=== PATIENT | male | born 1965 | race Caucasian/White ===

== ENCOUNTER 2016-09-28 06:39 | Emergency (ER) | payer OTHER ==
[~2016-09-28] VITALS: Ht 182.9 cm; Wt 111.1 kg
[~2016-09-28 06:39] MED LIST: AMOXIL500 MG PO; ATORVASTATIN CA10 MG PO; DIVALPROEX SOD500 MG PO; FIORICET 325 MG1 TAB PO; LISINOPRIL20 MG PO; MOTRIN 400MG (400 MG PO; PERCOCET 325 MG1 TA2 PO; PREDNISONE 20MG20 MG PO; RISPERIDONE1 MG PO; TAMSULOSIN HYD0.4 MG PO; TORADOL10 MG PO; ZOFRAN ODT4 MG SL
[2016-09-28 06:56] VITALS: BP 118/76
[2016-09-28] MEDS ORDERED: TRIAMTERENE-HC1 EAC3 PO (07:01)
--- NOTE | 2016-09-28 07:29 | ED GENERAL ADULT ---
History of Present Illness General Chief Complaint: General Adult Stated Complaint: ITCHY HANDS Source: patient Exam Limitations: no limitations Vital Signs & Intake/Output Vital Signs & Intake/Output ED Intake and Output 09/29 0000 09/28 1200 Intake Total Output Total Balance Patient 245 lb Weight Allergies Uncoded Allergies: LATEX POWDER IN GLOVES (Severe, BRIGHT RED SKIN AND HIVES 09/28/16) Reconcile Medications Atorvastatin Calcium (Lipitor) 10 MG TABLET 1 TAB PO DAILY CHOLESTEROL ( Reported) Divalproex Sodium (Divalproex Sodium ER) 500 MG TAB.ER.24H 1 TAB PO TID MOOD STABILIZER (Reported) Hydroxyzine Pamoate (Vistaril) 25 MG CAPSULE 1 CAP PO Q12 PRN ITCHING Prednisone 20 MG TABLET 1 TAB PO DAILY CONTACT DERMATITIS Risperidone 1 MG TABLET 1 TAB PO DAILY HYPERNESS (Reported) TAMSULOSIN HCL (Tamsulosin Hydrochloride) 0.4 MG CAP.ER.24H 1 CAP PO DAILY EXCESSIVE URINATION (Reported) Triamterene/Hydrochlorothiazid (Triamterene-Hctz 37.5-25 MG Cp) 37.5 MG-25 MG CAPSULE 1 CAP PO DAILY HTN (Reported) Triage Note: TRIAGE: PATIENT TO ER FROM HOME REPORTING BILATERAL HAND REDNESS AND ITCHING X 1 MONTH, REPORTS ITCHING CONSTANT THOUGH WORSE TONIGHT. HANDS NOTED W/ REDNESS AND CRACKING. PATIENT REPORTS HX ALLERGY TO LATEX POWDER IN GLOVES, WEARS GLOVES AT WORK THOUGH REPORTS THEY ARE LATEX AND POWDER FREE. Triage Nurses Notes Reviewed? yes Onset: Abrupt Duration: day(s): Timing: recent history HPI: 09/28/16 7:46 AM 51-year-old man presents to the emergency department with a rash to bilateral hands. He says that the powder in the gloves were he works at [employer] irritates his hands. He has a dry cracking rash in between the fingers. The onset of the symptoms was abrupt, the duration has been for several days, the severity is significant as his symptoms required him to come to the emergency department for care. He was told not to use the gross with the powder. Use Aquaphor, short course of prednisone and Atarax as needed for itching. He will follow-up with his doctor next week. Past History Travel History Traveled to [place] past 21 day No Medical History Any Pertinent Medical History? see below for history Neurological: migraine EENT: NONE Cardiovascular: hypertension, hyperlipidemia Respiratory: NONE Gastrointestinal: diverticulitis, GERD Hepatic: NONE Renal: NONE Musculoskeletal: NONE Psychiatric: bipolar disease Endocrine: NONE Blood Disorders: NONE Cancer(s): NONE HEADER BOSS/Reproductive: NONE Surgical History Surgical History: VASECTOMY Psychosocial History Who do you live with Patient/Self Services at Home None What is your primary language Serbian Tobacco Use: Refused to answer Family History Hx Contributory? No Review of Systems Review of Systems Constitutional: Denies: fever. EENTM: Reports: no symptoms. Respiratory: Reports: no symptoms. Cardiovascular: Reports: no symptoms. GI: Reports: no symptoms. Genitourinary: Reports: no symptoms. Musculoskeletal: Reports: no symptoms. Skin: Reports: see HPI. Neurological/Psychological: Reports: no symptoms. Hematologic/Endocrine: Reports: no symptoms. Immunologic/Allergic: Reports: no symptoms. Physical Exam Physical Exam General Appearance: alert, awake, anxious, mild distress Head: atraumatic, normal appearance Eyes: Bilateral: normal appearance, PERRL, EOMI. Ears, Nose, Throat: normal ENT inspection Neck: full range of motion Respiratory: no respiratory distress Cardiovascular: regular rate/rhythm Peripheral Pulses: 4+ radial (R), 4+ radial (L) Back: normal range of motion Extremities: no edema Neurologic/Psych: no motor/sensory deficits, awake, alert, oriented x 3 Skin: intact, rash Comments: HE HAS MILD ERYTHEMA AND CRACKING OF THE SKIN IN BETWEEN THE FINGERS AND ON THE FINGERS Core Measures ACS in differential dx? No CVA/TIA Diagnosis: No Severe Sepsis Present: No Septic Shock Present: No Progress Differential Diagnoses I considered the following diagnoses in my evaluation of the patient: [ DYSHIDROTIC ECZEMA, CONTACT DERMATITIS, PSORIASIS, SYPHILIS] Plan of Care: PREDNISONE DIRECTED, Atarax for itching, follow-up with your doctor on Saturday Initial ED EKG: none Departure Departure Disposition: HOME OR SELF CARE Condition: Stable Clinical Impression Primary Impression: Contact dermatitis Referrals: FABIO FLOYD MD (PCP/Family) Departure Forms: Customer Survey General Discharge Information Prescriptions: Current Visit Scripts Prednisone 1 TAB PO DAILY #6 TAB Hydroxyzine Pamoate (Vistaril) 1 CAP PO Q12 PRN ITCHING #10 CAP Critical Care Note Critical Care Note Critical Care Time: non-applicable
[2016-09-28] MEDS ORDERED: PREDNISONE20 M1 PO (07:50)
[2016-09-28] MEDS ORDERED: VISTARIL25 M1 PO (07:50)
== END 2016-09-28 07:55 ==
LOC: ERH 06:39
DX: L25.9 Unspecified contact dermatitis, unspecified cause (principal)

== ENCOUNTER 2018-03-12 19:40 | Emergency (ER) | payer OTHER ==
[~2018-03-12 19:40] MED LIST changes: -ATORVASTATIN CA10 MG PO; +CIPRO500 M1 PO; +DIVALPROEX SOD500 M3 PO; -DIVALPROEX SOD500 MG PO; +FLAGYL500 MG PO; +LIPITOR10 M1 PO; +PREDNISONE20 M1 PO; +RISPERDAL1 M1 PO; -RISPERIDONE1 MG PO; +TRIAMTERENE-HC1 EAC3 PO; +VISTARIL25 M1 PO
[2018-03-12 22:19] VITALS: BP 133/88
--- NOTE | 2018-03-12 22:35 | ED HEADACHE COMPLAINT ---
History of Present Illness General Chief Complaint: Headache Stated Complaint: "MIGRAINE" Source: patient Exam Limitations: no limitations Vital Signs & Intake/Output Vital Signs & Intake/Output Vital Signs Date Time Temp Pulse Resp B/P B/P Pulse O2 O2 Flow FiO2 Mean Ox Delivery Rate 03/12 2219 98.0 65 18 133/88 98 03/12 1957 136/97 03/12 1956 97.6 79 16 97 Room Air Allergies Coded Allergies: No Known Allergies (04/02/17) Reconcile Medications Atorvastatin Calcium (Lipitor) 10 MG TABLET 1 TAB PO DAILY cholesterol ( Reported) Ciprofloxacin HCl (Cipro) 500 MG TABLET 1 TAB PO BID diverticulitis Divalproex Sodium (Divalproex Sodium ER) 500 MG TAB.ER.24H 3 TAB PO QPM MOOD STABILITY (Reported) Metronidazole (Flagyl) 500 MG TABLET 1 TAB PO BID diverticulitis Risperidone (Risperdal) 1 MG TABLET 1 TAB PO QPM MOOD STABILITY (Reported) Triamterene/Hydrochlorothiazid (Triamterene-Hctz 37.5-25 MG Cp) 37.5 MG-25 MG CAPSULE 1 CAP PO QPM HTN (Reported) Triage Note: PT TO ED WITH C/O MIGRAINE BEGINNING TODAY. STATES TOOK PRESCRIBED MIGRAINE PILL WITH NO RELIEF. REPORTS PHOTOSENSITIVITY AND NAUSEA, HOWEVER EATING LUBNA CRACKERS IN TRIAGE. Triage Nurses Notes Reviewed? yes Onset: Gradual Duration: minute(s): Timing: single episode today Quality/Severity: moderate HPI: 52yo male with hx of migraines presents to ED complaining of "migraine" headache beginning about 2 hours prior to arrival. Patient describes pain as similar to previous migraine headaches he has had in the past. Patient states that headache began gradually, patient took his home medication typically relieves his headaches however this was ineffective. Patient presented here for further evaluation. Patient states that since waiting in the waiting room his headache has resolved, currently has no pain. Patient states earlier he did have photophobia and nausea however the symptoms have resolved as well, patient noted to be eating lubna crackers in triage. She denies recent fall or head trauma, paresthesias, blurry vision, one-sided weakness or vomiting. (Malena TINOCO,Snehal Kraus) Past History Travel History Traveled to [place] past 21 day No Medical History Any Pertinent Medical History? see below for history Neurological: migraine EENT: NONE Cardiovascular: hypertension, hyperlipidemia Respiratory: NONE Gastrointestinal: diverticulitis, GERD Hepatic: NONE Renal: NONE Musculoskeletal: NONE Psychiatric: bipolar disease Endocrine: NONE Blood Disorders: NONE Cancer(s): NONE SCRAPPER/Reproductive: NONE Surgical History Surgical History: VASECTOMY Psychosocial History Who do you live with Patient/Self Services at Home None What is your primary language Burmese Tobacco Use: Current Daily Use Daily Tobacco Use Amount/Type: => 5 Cigarettes daily Family History Hx Contributory? No (Snehal Roa) Review of Systems Review of Systems Constitutional: Reports: no symptoms. Eyes: Reports: see HPI. Ears, Nose, Throat, Mouth: Reports: no symptoms. Respiratory: Reports: no symptoms. Cardiovascular: Reports: no symptoms. Gastrointestinal/Abdominal: Reports: see HPI. Genitourinary: Reports: no symptoms. Musculoskeletal: Reports: no symptoms. Skin: Reports: no symptoms. Neurological/Psychological: Reports: see HPI. Hematologic/Endocrine: Reports: no symptoms. Endocrine: Reports: no symptoms. Immunologic/Allergic: Reports: no symptoms. All Other Systems: Reviewed and Negative (Snehal Roa) Physical Exam Physical Exam General Appearance: well developed/nourished, no apparent distress, alert, awake Head: atraumatic, normal appearance Eyes: Bilateral: normal appearance, PERRL, EOMI. Ears, Nose, Throat: hearing grossly normal Neck: normal inspection, supple, full range of motion Respiratory: no respiratory distress Back: normal inspection, normal range of motion Extremities: normal inspection, normal range of motion Psychiatric: awake, alert, oriented x 3 Cranial Nerves: normal hearing, normal speech, PERRL, CN II-XII intact Coordination/Gait: normal gait Motor/Sensory: no motor/sensory deficits Skin: intact, normal color, warm/dry Core Measures Sepsis Present: No Sepsis Focused Exam Completed? No (Snehal Roa) Progress Differential Diagnosis: cluster SHINE, IC mass/tumor, intracranial Hem., migraine SHINE, sinusitis, tension SHINE Plan of Care: Patient describes his headache and same as quality and severity to previous migraine headaches. His headache has resolved prior to my evaluation here in the emergency Department. Patient is declining further evaluation, he is requesting to go home at this time. He declines medications. Vision is neurologically intact, no focal neurologic deficit. He answers questions readily, ambulatory steady gait. Symptoms are most consistent with migraine given his history and clinical presentation. Patient agrees the plan of care. (Malena TINOCO,Snehal Kraus) Departure Departure Disposition: HOME OR SELF CARE Condition: Stable Clinical Impression Primary Impression: Headache Qualifiers: Headache type: unspecified Headache chronicity pattern: acute headache Intractability: not intractable Qualified Code: R51 - Headache Referrals: Billy ELISE,Eulalia (PCP/Family) Additional Instructions: Continue taking YOUR medications as prescribed. Follow-up with YOUR primary care doctor. Return if worsening symptoms or concerns. Please note that there might be incidental findings in your evaluation that are unrelated to the current emergency department visit. Please notify your primary care doctor about this emergency department visit in order to obtain and review all of the testing performed so that these incidental findings can be monitored as needed. If you had an x-ray performed, please understand that some fractures may not be seen on the initial set of x-rays. If your symptoms persist you might need a repeat set of x-rays to check for such a fracture. If you had a laceration evaluated, please understand that foreign bodies such as glass or wood may not be visible to the naked eye or on plain x-rays. If the wound becomes red, swollen, increasingly more painful or if there is any drainage from the wound, please have it reevaluated by a physician for the possibility of a retained foreign body. If you're unable to follow up as outlined in the discharge instructions please return to the emergency department. Thank you for choosing the [facility] Emergency Department for your care. It was a pleasure to serve you today. Departure Forms: Customer Survey General Discharge Information (Snehal Roa) PA/CAPPING MACHINE OPERATOR Co-Sign Statement Statement: ED Attending supervision documentation- I saw and evaluated the patient. I have also reviewed all the pertinent lab results and diagnostic results. I agree with the findings and the plan of care as documented in the PA's/CAPPING MACHINE OPERATOR's documentation. x I have reviewed the ED Record and agree with the PA's/CAPPING MACHINE OPERATOR's documentation. [] Additions or exceptions (if any) to the PAs/CAPPING MACHINE OPERATOR's note and plan are summarized below: [] (Olayinka ELISE,Lambert)
== END 2018-03-12 22:42 ==
LOC: ERH 19:40
DX: R51 Headache (principal)